=== PATIENT | female | born 1975 | race Caucasian/White ===

== ENCOUNTER 2017-01-04 13:11 | Emergency (ER) | payer OTHER, MEDICAID ==
[~2017-01-04] VITALS: Ht 160 cm; Wt 81.6 kg
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
[2017-01-04 14:44] VITALS: BP 156/96
== END 2017-01-04 14:49 | disposition home or self-care (01) ==
LOC: UTC 13:11
DX: S46.912A Strain of unspecified muscle, fascia and tendon at shoulder and upper arm level, left arm, initial encounter (principal); V48.0XXA Car driver injured in noncollision transport accident in nontraffic accident, initial encounter; Y92.488 Other paved roadways as the place of occurrence of the external cause; F17.210 Nicotine dependence, cigarettes, uncomplicated; I25.10 Atherosclerotic heart disease of native coronary artery without angina pectoris; F41.9 Anxiety disorder, unspecified; F32.9 Major depressive disorder, single episode, unspecified; Z79.899 Other long term (current) drug therapy

== ENCOUNTER → 2017-02-01 | Outpatient (CLI) | payer OTHER, MEDICAID ==
[~2017-02-01] MED LIST: IBUPROFEN800 MG PO; PRINIVIL10 MG PO; SEROQUEL400 MG PO; VISTARIL25 M1 PO; ZOLOFT100 MG PO
[2017-02-03 08:46] LABS: RA Latex Turbid. 21.2 IU/mL (0.0-13.9)
[2017-02-03 20:36] LABS: Antinuclear Antibodies, IFA Positive (.)
== END ==
LOC: LAB 15:27
PROVIDERS: Emergency Medicine
DX: M25.539 Pain in unspecified wrist (principal)

== ENCOUNTER → 2017-03-03 | Outpatient (CLI) | payer OTHER, MEDICAID ==
[2017-03-03 10:54] LABS: LYMPH # 2.9 K/mm3 (0.7-4.5); LYMPH % 29.3 % (10-50.0)
[2017-03-03 10:57] LABS: HEMOGLOBIN 14.3 g/dL (12.2-16.2)
[2017-03-03 11:53] LABS: BUN 12 mg/dL (7-18)
[2017-03-03 12:00] LABS: GFR (ESTIMATED) 79 ML/MIN (59-)
--- NOTE | 2017-03-04 08:35 | RADIOLOGY REPORT PS360 ---
CHEST(2 VIEWS-NOT PORTABLE) Ordering physician: William Angel MD Age: 41 years Female INDICATION: chest symptomsHTN, SMOKER occasional cough PROCEDURE: CHEST(2 VIEWS-NOT PORTABLE) FINDINGS: Previous chest film portable from 10/06/2015. No interval change Lungs well expanded and clear with nothing definitely acute. No pneumothorax. No pleural effusion. Heart normal size. Normal pulmonary vascularity. Hilar and mediastinal structures appear satisfactory. Small calcified hilar nodes reflecting old granulomatous disease Chest wall unremarkable. T-spine intact. IMPRESSION ----- Stable negative chest. Lungs clear. No active disease
== END ==
LOC: RT 10:09 → LAB 10:09
PROVIDERS: Emergency Medicine
DX: G56.01 Carpal tunnel syndrome, right upper limb (principal); Z01.812 Encounter for preprocedural laboratory examination

== ENCOUNTER 2017-03-28 08:58 | Emergency (ER) | payer MEDICAID ==
[~2017-03-28] VITALS: Ht 160 cm; Wt 79.4 kg
--- OUTSIDE RECORDS SUMMARY | 2017-03-28 09:39 | External Medical Summary Rpt | CCD ---
Author Author , GLORY HOLDER Address Unknown Phone [email or web address] Care Team Providers Care Driller Helper Name Role Phone BEALYSHAKE LASHAWN, DMITRIALYSHAJOSH Unavailable Unavailable LASHAWN JONA JIMMY, Unavailable Unavailable JONA JIMMY BEBE OLIVEIRA PA-C Unavailable Unavailable BEBE LOCKWOOD PA-C FABIÁN VIOLETTE, VIOLETTE Unavailable Unavailable VIOLETTE SHANNAN, VIOLETTE Unavailable Unavailable SHANNAN LEXII SERJIO, LEXII Unavailable Unavailable SERJIO [facility] Un[facility] Un[facility], [facility], Unavailable Unavailable [facility] Un[facility], [facility] Unavailable Un[facility] Unavailable Unavailable [facility], [facility] SCIFRES, SCIFRES Unavailable Unavailable SCIFRES, SCIFRES Unavailable Unavailable WELLS SEA, WELLS SEA Unavailable Unavailable Purpose Continuity of Care Document - 07-19-2013 through 2016 Problems Code Diagnosis DOS Provider Status 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 K70149 OTHER LONG 06-28-2016 [facility] CURRENT INC DRUG THERAPY H524 PRESBYOPIA 05-20-2016 [facility] N289 DISORDER OF 01-29-2016 [facility] K[facility]YS[facility] URETER GROUP UNSPECIFIED R1031 RIGHT LOWER 01-26-2016 [facility] PAIN OF [facility] Z5329 PROC & [place] 01-26-2016 [facility] OUT INC PATIENTS OTH REASON 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 11-25-2015 [facility] THYROID INC NODULE E663 OVERWEIGHT 11-25-2015 [facility] INC I10 ESSENTIAL 11-25-2015 [facility] HYPERTENSIO INC N R079 CHEST PAIN 10-06-2015 [facility] M542 CERVICALGIA 08-27-2015 [facility] K529 NONINFECTIV 02-19-2015 [facility] E PHYSICIANS GASTROENTER GROUP ITIS & COLITIS UNS V7231 ROUTINE 03-18-2014 [facility] AL EXAMINATION 2410 NONTOXIC 11-27-2013 [facility] 2458 OTHER AND 11-27-2013 [facility] CHRONIC THYROIDITIS 2409 GOITER, 11-05-2013 [facility] 35025 OTHER 07-19-2013 [facility] FATIGUE INC F41.0 PANIC DISORDER WITHOUT AGORAPHOBIA R07.89 OTHER CHEST PAIN Z86.59 PERSONAL HISTORY OF OTHER MENTAL AND BEHAVIORAL DISORDERS Medications Na ND Rx Da Fi Fi Am Da Di Ph RX Ph St me C No te ll ll ou ys ag ar # ys at rm s nt no ma ic us Or Da si cy ia de te s n re d SE 65 11 12 60 30 00 HO Ac RT 86 -1 -0 .0 00 ME ti RA 20 4- 8- 00 06 TO ve LI 01 20 20 09 WN NE 30 17 17 00 5 36 PH HC AR L MA 10 CY 0 MG OF TA CY BL NT ET HI AN A LI 68 11 12 30 30 00 HO Ac SI 00 -1 -0 .0 00 ME ti NO 10 4- 8- 00 06 TO ve RI 26 20 20 09 WN IL 80 17 17 00 8 37 PH 10 AR MA MG CY TA OF BL ET CY NT HI AN A QU 68 11 12 60 30 00 HO Ac ET 00 -1 -0 .0 00 ME ti IA 10 4- 8- 00 06 TO ve PI 18 20 20 09 WN NE 30 17 17 00 6 38 PH FU AR MA MA RA CY TE OF 30 0 CY MG NT HI TA AN B A TR 57 11 12 30 10 00 HO Ac AM 66 -0 -0 .0 00 ME ti AD 40 8- 1- 00 04 TO ve OL 37 20 20 02 WN 71 17 17 55 HC 8 38 PH L AR 50 MA CY MG OF TA BL CY ET NT HI AN A AC 00 10 11 42 21 00 HO Ac ET 09 -1 -1 .0 00 ME ti AM 30 8- 0- 00 04 TO ve IN 15 20 20 02 WN OP 01 17 17 51 HE 0 74 PH N- AR CO MA D CY #3 OF TA BL CY ET NT HI AN A RI 59 10 11 12 6 00 HO Ac ED 74 -1 -1 .0 00 ME ti NI 60 8- 0- 00 06 TO ve SO 17 20 20 09 WN NE 50 17 17 63 9 65 PH 20 AR MA MG CY TA OF BL ET CY NT HI AN A SE 65 10 11 60 30 00 HO Ac RT 86 -1 -0 .0 00 ME ti RA 20 1- 3- 00 06 TO ve LI 01 20 20 09 WN NE 30 17 17 00 5 36 PH HC AR L MA 10 CY 0 MG OF TA CY BL NT ET HI AN A QU 68 10 11 60 30 00 HO Ac ET 00 -1 -0 .0 00 ME ti IA 10 1- 3- 00 06 TO ve PI 18 20 20 09 WN NE 30 17 17 00 6 38 PH FU AR MA MA RA CY TE OF 30 0 CY MG NT HI TA AN B A LI 68 10 11 30 30 00 HO Ac SI 00 -1 -0 .0 00 ME ti NO 10 1- 3- 00 06 TO ve RI 26 20 20 09 WN IL 80 17 17 00 8 37 PH 10 AR MA MG CY TA OF BL ET CY NT HI AN A QU 68 09 10 60 30 00 HO Ac ET 00 -1 -1 .0 00 ME ti IA 10 4- 3- 00 06 TO ve PI 18 20 20 09 WN NE 30 17 17 00 6 38 PH FU AR MA MA RA CY TE OF 30 0 CY MG NT HI TA AN B A SE 65 09 10 60 30 00 HO Ac RT 86 -1 -1 .0 00 ME ti RA 20 4- 3- 00 06 TO ve LI 01 20 20 09 WN NE 30 17 17 00 5 36 PH HC AR L MA 10 CY 0 MG OF TA CY BL NT ET HI AN A LI 68 09 10 30 30 00 HO Ac SI 00 -1 -1 .0 00 ME ti NO 10 4- 3- 00 06 TO ve RI 26 20 20 09 WN IL 80 17 17 00 8 37 PH 10 AR MA MG CY TA OF BL ET CY NT HI AN A LI 68 08 09 30 30 00 HO Ac SI 00 -1 -0 .0 00 ME ti NO 10 4- 8- 00 06 TO ve RI 26 20 20 09 WN IL 80 17 17 00 8 37 PH 10 AR MA MG CY TA OF BL ET CY NT HI AN A SE 65 08 09 60 30 00 HO Ac RT 86 -1 -0 .0 00 ME ti RA 20 4- 8- 00 06 TO ve LI 01 20 20 09 WN NE 30 17 17 00 5 36 PH HC AR L MA 10 CY 0 MG OF TA CY BL NT ET HI AN A QU 68 08 09 60 30 00 HO Ac ET 00 -1 -0 .0 00 ME ti IA 10 4- 8- 00 06 TO ve PI 18 20 20 09 WN NE 30 17 17 00 6 38 PH FU AR MA MA RA CY TE OF 30 0 CY MG NT HI TA AN B A SE 65 07 08 60 30 00 HO Ac RT 86 -1 -1 .0 00 ME ti RA 20 4- 1- 00 06 TO ve LI 01 20 20 09 WN NE 30 17 17 00 5 36 PH HC AR L MA 10 CY 0 MG OF TA CY BL NT ET HI AN A LI 68 07 08 30 30 00 HO Ac SI 00 -1 -1 .0 00 ME ti NO 10 4- 1- 00 06 TO ve RI 26 20 20 09 WN IL 80 17 17 00 8 37 PH 10 AR MA MG CY TA OF BL ET CY NT HI AN A QU 68 07 08 60 30 00 HO Ac ET 00 -1 -1 .0 00 ME ti IA 10 4- 1- 00 06 TO ve PI 18 20 20 09 WN NE 30 17 17 00 6 38 PH FU AR MA MA RA CY TE OF 30 0 CY MG NT HI TA AN B A SE 65 06 07 60 30 00 HO Ac RT 86 -1 -1 .0 00 ME ti RA 20 6- 4- 00 06 TO ve LI 01 20 20 08 WN NE 30 17 17 90 5 12 PH HC AR L MA 10 CY 0 MG OF TA CY BL NT ET HI AN A QU 68 06 07 60 30 00 HO Ac ET 00 -1 -1 .0 00 ME ti IA 10 5- 4- 00 06 TO ve PI 18 20 20 08 WN NE 30 17 17 90 6 10 PH FU AR MA MA RA CY TE OF 30 0 CY MG NT HI TA AN B A LI 68 06 07 30 30 00 HO Ac SI 00 -1 -1 .0 00 ME ti NO 10 6- 4- 00 06 TO ve RI 26 20 20 08 WN IL 80 17 17 90 8 11 PH 10 AR MA MG CY TA OF BL ET CY NT HI AN A SE 65 05 06 60 30 00 HO Ac RT 86 -2 -1 .0 00 ME ti RA 20 4- 6- 00 06 TO ve LI 01 20 20 08 WN NE 30 17 17 32 5 12 PH HC AR L MA 10 CY 0 MG OF TA CY BL NT ET HI AN A LI 68 05 06 30 30 00 HO Ac SI 00 -2 -1 .0 00 ME ti NO 10 4- 6- 00 06 TO ve RI 26 20 20 08 WN IL 80 17 17 32 8 11 PH 10 AR MA MG CY TA OF BL ET CY NT HI AN A QU 68 05 06 60 30 00 HO Ac ET 00 -1 -1 .0 00 ME ti IA 10 5- 6- 00 06 TO ve PI 18 20 20 08 WN NE 30 17 17 32 6 10 PH FU AR WIL DE LA TORRE RA CY TE OF 30 0 CY MG NT HI TA AN B A QU 68 04 05 60 30 00 HO Ac ET 00 -1 -1 .0 00 ME ti IA 10 4- 2- 00 06 TO ve PI 18 20 20 08 WN NE 30 17 17 32 6 10 PH FU AR WIL DE LA TORRE RA CY TE OF 30 0 CY MG NT HI TA AN B A LI 68 04 05 30 30 00 HO Ac SI 00 -1 -1 .0 00 ME ti NO 10 4- 2- 00 06 TO ve RI 26 20 20 08 WN IL 80 17 17 32 8 11 PH 10 AR MA MG CY TA OF BL ET CY NT HI AN A SE 65 04 05 60 30 00 HO Ac RT 86 -1 -1 .0 00 ME ti RA 20 4- 2- 00 06 TO ve LI 01 20 20 08 WN NE 30 17 17 32 5 12 PH HC AR L MA 10 CY 0 MG OF TA CY BL NT ET HI AN A AL 59 04 05 7. 7 00 HO Ac RI 76 -1 -0 00 00 ME ti AZ 23 2- 5- 0 04 TO ve OL 71 20 20 02 WN AM 90 17 17 18 3 83 PH 0. AR 25 MA CY MG OF TA BL CY ET NT HI AN A AL 59 03 04 28 14 00 HO Ac RI 76 -2 -2 .0 00 ME ti AZ 23 8- 1- 00 04 TO ve OL 71 20 20 02 WN AM 90 17 17 18 3 82 PH 0. AR 25 MA CY MG OF TA BL CY ET NT HI AN A SE 65 03 04 60 30 00 HO Ac RT 86 -1 -0 .0 00 ME ti RA 20 4- 7- 00 06 TO ve LI 01 20 20 08 WN NE 30 17 17 32 5 12 PH HC AR L MA 10 CY 0 MG OF TA CY BL NT ET HI AN A AL 59 03 04 42 14 00 HO Ac RI 76 -1 -0 .0 00 ME ti AZ 23 4- 7- 00 04 TO ve OL 71 20 20 02 WN AM 90 17 17 18 3 81 PH 0. AR 25 MA CY MG OF TA BL CY ET NT HI AN A QU 68 03 04 60 30 00 HO Ac ET 00 -1 -0 .0 00 ME ti IA 10 4- 7- 00 06 TO ve PI 18 20 20 08 WN NE 30 17 17 32 6 10 PH FU AR MA MA RA CY TE OF 30 0 CY MG NT HI TA AN B A LI 00 03 04 30 30 00 HO Ac SI 18 -1 -0 .0 00 ME ti NO 50 4- 7- 00 06 TO ve RI 61 20 20 08 WN IL 01 17 17 32 0 11 PH 10 AR MA MG CY TA OF BL ET CY NT HI AN A LI 00 02 03 30 30 00 HO Ac SI 18 -1 -1 .0 00 ME ti NO 50 6- 7- 00 06 TO ve RI 61 20 20 07 WN IL 01 17 17 75 0 13 PH 10 AR MA MG CY TA OF BL ET CY NT HI AN A AL 59 02 03 90 30 00 HO Ac RI 76 -1 -1 .0 00 ME ti AZ 23 6- 7- 00 04 TO ve OL 72 20 20 02 WN AM 00 17 17 06 4 33 PH 0. AR 5 MA MG CY TA OF BL ET CY NT HI AN A SE 65 02 03 60 30 00 HO Ac RT 86 -1 -1 .0 00 ME ti RA 20 3- 0- 00 06 TO ve LI 01 20 20 07 WN NE 30 17 17 75 5 11 PH HC AR L MA 10 CY 0 MG OF TA CY BL NT ET HI AN A QU 68 02 03 60 30 00 HO Ac ET 00 -1 -1 .0 00 ME ti IA 10 3- 0- 00 06 TO ve PI 18 20 20 07 WN NE 30 17 17 75 6 10 PH FU AR MA MA RA CY TE OF 30 0 CY MG NT HI TA AN B A SE 65 01 02 60 30 00 HO Ac RT 86 -1 -1 .0 00 ME ti RA 20 3- 0- 00 06 TO ve LI 01 20 20 07 WN NE 30 17 17 75 5 11 PH HC AR L MA 10 CY 0 MG OF TA CY BL NT ET HI AN A AL 59 01 02 90 30 00 HO Ac RI 76 -1 -1 .0 00 ME ti AZ 23 8- 0- 00 04 TO ve OL 72 20 20 02 WN AM 00 17 17 06 4 33 PH 0. AR 5 MA MG CY TA OF BL ET CY NT HI AN A LI 00 01 02 30 30 00 HO Ac SI 18 -1 -1 .0 00 ME ti NO 50 8- 0- 00 06 TO ve RI 61 20 20 07 WN IL 01 17 17 75 0 13 PH 10 AR MA MG CY TA OF BL ET CY NT HI AN A QU 68 01 02 60 30 00 HO Ac ET 00 -1 -1 .0 00 ME ti IA 10 3- 0- 00 06 TO ve PI 18 20 20 07 WN NE 30 17 17 75 6 10 PH FU AR MA MA RA CY TE OF 30 0 CY MG NT HI TA AN B A AL 59 12 01 90 30 00 HO Ac RI 76 -2 -1 .0 00 ME ti AZ 23 1- 3- 00 04 TO ve OL 72 20 20 02 WN AM 00 16 17 06 4 33 PH 0. AR 5 MA MG CY TA OF BL ET CY NT HI AN A QU 60 12 01 60 30 00 HO Ac ET 50 -1 -1 .0 00 ME ti IA 53 6- 3- 00 06 TO ve PI 13 20 20 07 WN NE 70 16 17 75 6 10 PH FU AR MA MA RA CY TE OF 30 0 CY MG NT HI TA AN B A SE 65 12 01 60 30 00 HO Ac RT 86 -1 -1 .0 00 ME ti RA 20 6- 3- 00 06 TO ve LI 01 20 20 07 WN NE 30 16 17 75 5 11 PH HC AR L MA 10 CY 0 MG OF TA CY BL NT ET HI AN A LI 00 12 01 30 30 00 HO Ac SI 18 -1 -1 .0 00 ME ti NO 50 6- 3- 00 06 TO ve RI 61 20 20 07 WN IL 01 16 17 75 0 13 PH 10 AR MA MG CY TA OF BL ET CY NT HI AN A Results Labs Lab Lab Date Result Refere Interp Status Commen Order Detail nces retati t Range on Basic metabolic panel (03-03-2017 10:10) Serum 11-17-2 = 138 136-145 complet sodium 017 mmoL/L ed measure 10:10 ment Serum 11-17-2 = 4.0 3.5-5.1 complet potassi 017 mmoL/L ed um 10:10 measure ment Serum 11-17-2 = 80 74-106 complet or 017 mg/dL ed plasma 10:10 glucose measure ment (mas Comment: PLEASE NOTE 3+ LIPEMIA Estimat = 79 59- complet ed 017 ML/MIN ed glomeru 10:10 lar filtrat ion rate (GF Comment: REFERENCE RANGE: >60 ML/MIN/1.73 SQUARE METERS Comment: If this patient is -Moroc[place], then multiply the Comment: result by 1.210. Serum 03-03-2 = 0.8 0.55-1. complet or 017 mg/dL 02 ed plasma 10:10 creatin ine measure ment ( Carbon = 29 21.0-32 complet dioxide 017 mmoL/L .0 ed 10:10 measure ment Serum 03-03-2 = 9.6 8.5-10. complet or 017 mg/dL 1 ed plasma 10:10 calcium measure ment (mas Serum = 12 7-18 complet or 017 mg/dL ed plasma 10:10 urea nitroge n measure men Serum = 102 98-107 complet or 017 mmoL/L ed plasma 10:10 chlorid e measure ment (mo Serum test (03-03-2017 10:10) Serum = NEG complet pregnan 017 NEGATIV ed cy test 10:10 E CBC w auto diff (03-03-2017 10:10) Blood = 10.1 4.8-10. complet leukocy 017 K/MM3 8 ed kenji 10:10 count (number /volume ) Automat = 12.9 11.5-17 complet ed 017 % .5 ed erythro 10:10 cyte distrib ution width Red = 4.79 4.2-5.4 complet blood 017 M/mm3 ed cell 10:10 count Blood = 240 142-424 complet platele 017 K/mm3 ed t count 10:10 Automat = 8.6 7.4-10. complet ed 017 fl 4 ed blood 10:10 platele t mean volume niko Garrett % = 5.4 % 1.7-9.3 complet 017 ed 10:10 Absolut = 0.6 0.1-1.0 complet e 017 K/mm3 ed monocyt 10:10 e count Automat = 88.2 82.2-97 complet ed 017 fl .8 ed erythro 10:10 cyte mean corpusc ular v Automat = 33.8 31.8-35 complet ed 017 g/dl .4 ed erythro 10:10 cyte mean corpusc ular h Mean = 29.8 27-31.2 complet corpusc 017 pg ed ular 10:10 hemoglo bin (MCH) determ Lymphoc = 29.3 10-50.0 complet yte 017 % ed count, 10:10 blood, automat ed Absolut = 2.9 0.7-4.5 complet e 017 K/mm3 ed lymphoc 10:10 yte count Blood = 14.3 12.2-16 complet hemoglo 017 g/dL .2 ed bin 10:10 measure ment (mass/v olum Blood = 42.2 37.0-47 complet hematoc 017 % .0 ed rit 10:10 (volume fractio n) Granulo = 62.4 37.0-80 complet cyte 017 % .0 ed percent 10:10 age Blood = 6.3 1.8-7.8 complet granulo 017 K/mm3 ed cytes 10:10 automat ed count (numb Automat = 2.2 % 0.1-12. complet ed 017 0 ed blood 10:10 eosinop hils/10 0 leukocy t Automat = 0.2 0.0-0.4 complet ed 017 K/mm3 ed blood 10:10 eosinop hil count Baso % = 0.6 % 0.1-2.0 complet 017 ed 10:10 Automat = 0.1 0-0.2 complet ed 017 K/MM3 ed blood 10:10 basophi l count (count/ vo Serum or plasma rheumatoid factor measur (02-01-2017 11:50) Serum 2 = 21.2 0.0-13. complet or 017 IU/mL 9 ed plasma 11:50 rheumat oid factor measur Comment: Performed at: [facility] Comment: [id number], [place] [id number] Comment: Residential Fee Appraiser: Natanael Vanegas PhD, Phone: [phone] Antinuclear Antibodies, IFA (02-01-2017 11:50) Serum = . complet nuclear 017 Positiv ed 11:50 e antibod y titer by immunof l Comment: Negative <1:80 Comment: Borderline 1:80 Comment: Positive >1:80 Serum 1 : 80 . complet homogen 017 ed eous 11:50 pattern antinuc lear an Note: Comment . complet 017 ed 11:50 Comment: Comment: A positive ANIKA result may occur in healthy individuals (low Comment: titer) or be associated with a variety of diseases. See Comment: interpretation chart which is not all inclusive: Comment: Comment: Pattern Antigen Detected Suggested Disease Association Comment: -------- Comment: Homogeneous DNA(ds,ss), SLE - High titers Comment: Nucleosomes, Comment: Histones Drug-induced SLE Comment: -------- Comment: Speckled Sm, WHITE SUGAR SUPERVISOR, SCL-70, SLE,MCTD,PSS (diffuse form), Comment: SS-A/SS-B Sjogrens Comment: -------- Comment: Nucleolar SCL-70, PM-1/SCL High titers Scleroderma, Comment: PM/DM Comment: -------- Comment: Centromere Centromere PSS (limited form) w/Crest Comment: syndrome variable Comment: -------- Comment: Nuclear Dot Sp100,[id number] Primary Biliary Cirrhosis Comment: -------- Comment: Nuclear GP210, Primary Biliary Cirrhosis Comment: Membrane douglas A,B,C Comment: -------- Comment: Performed at: [facility] Comment: [address] [facility], [place], [place] [id number] Comment: Residential Fee Appraiser: Natanael Vanegas PhD, Phone: [phone] Erythrocyte sedimentation rate by jimmy (02-01-2017 11:50) Erythro 10-18-2 = 13 0-20 complet cyte 017 mm/hr ed sedimen 11:50 tation rate by jimmy Serum or plasma uric acid measurement ( (02-01-2017 11:50) Serum 10-18-2 = 6.4 2.6-7.2 complet or 017 mg/dL ed plasma 11:50 uric acid measure [facility] ( Procedures Procedure DOS Code Location Performer Comment COLLECTIO [address] [facility] N VENOUS 7 PHYSICIAN BLOOD S GROUP VENIPUNCT URE DRUG TEST 60987 [facility] PRSMV [facility] QUAL DIR INC INC OPTICAL OBS PER DAY OPHTH 18142 [facility] 7 XM&EVAL COMPRHNSV ESTAB PT 1/> DRUG TST G0477 [facility] PRESUMP;C 6 [facility] [place] [address] [facility] ABDOMEN & 6 PELVIS ASSOCIATE W/CONTRAS S OF NOT T MATERIAL HEMOGLOBI 74929 [facility] N 6 [facility] GLYCOSYLA INC INC BRO A1C BLOOD 72974 [facility] COUNT 6 [facility] COMPLETE INC INC AUTO&[place] [address] [facility] FREE 6 [facility] [place] [address] [facility] THYROID 6 [facility] STIMULATI INC INC NG HORMONE TSH MICROSOMA 27680 [facility] L 6 [facility] ANTIBODIE INC INC S EACH COMPREHEN 36949 [facility] SIVE 6 [facility] METABOLIC INC INC PANEL COLLECTIO 26587 [facility] N VENOUS 6 [facility] BLOOD INC INC VENIPUNCT URE RADIOLOGI 19187 [facility] C 6 MEDICAL LASHAWN EXAMINATI IMAGING ON CHEST ASS SINGLE VIEW FRONTAL THERAPEUT 40950 [facility] BEBE IC 6 PHYSICIAN STONE PROPHYLAC S GROUP PA-C FABIÁN TIC/DX INJECTION SUBQ/IM INJECTION J1040 [facility] BEBE 6 PHYSICIAN STONE METHYLPRE S GROUP PA-C FABIÁN DNISOLONE ACETATE 80 MG INJECTION J1885 [facility] BEBE 6 PHYSICIAN STONE KETOROLAC S GROUP PA-C FABIÁN TROMETHAM INE PER 15 MG CYTP C/V 49520 [facility] AUTO THIN 4 [facility] LYR PREPJ SCR MNL RESCR PHYS FINE 88214 [facility] NEEDLE 4 [facility] ASPIRATIO INC [place] [address] [facility] GUIDANCE 4 [facility] NEEDLE INC INC PLACEMENT IMG S&I CYTP EVAL 01410 [facility] FINE [address] [place] [address] NEEDLE ASPIRATE INTERP & RE[place] [address] [facility] SURG [address] [place] [address] PATHOLOGY GROSS&SHANNAN ROSCOPIC EXAM UNCLASSIF J3490 [facility] IED DRUGS 4 [facility] INC INC US SOFT 57831 [facility] TISSUE 4 [facility] HEAD & INC INC NECK REAL TIME IMGE DOCM IODINE A9516 [facility] I-123 4 [facility] SODIUM INC INC IODIDE DX PER 100 UCI TO 999 THYROID 22303 [facility] UPTAKE 4 [facility] W/BLOOD INC INC FLOW SNGLE/MUL T SAIDA AQUILES US SOFT 29057 [facility] JONA TISSUE 4 MEDICAL JIMMY HEAD & IMAGING NECK REAL ASS TIME IMGE DOCM BLOOD 66159 [facility] COUNT 4 [facility] COMPLETE INC INC AUTO&AUTO DIFRNTL WBC HEMOGLOBI 99184 [facility] N 4 [facility] GLYCOSYLA INC INC BRO A1C LIPID 50255 [facility] PANEL 4 [facility] [place] [address] [facility] THYROXINE [address] [facility] TOTAL INC INC COMPREHEN 01860 [facility] SIVE [address] [facility] [place] [address] [facility] THYROID [address] [facility] STIMULATI INC INC NG HORMONE TSH Encounters Encounter Start End Date Code Location Performer Type Date [facility] T [facility]UT[facility] 6 6 [facility] T OFFICE 70940 [facility] VIOLETTE HAZEL 6 6 PHYSICIAN SHANNAN T VISIT S GROUP 15 MINUTES EMERGENCY 46209 [facility] 6 6 EMERG[facility] T VISIT PHYSICIAN HIGH/URGE S NT [facility] 6 6 [facility] 6 6 [facility] T VISIT LIMITED/M INOR PROB [facility] 6 6 [facility] 30284 [facility] BEBE OUTPATIEN 6 6 PHYSICIAN STONE T VISIT S GROUP HUMBERTO LOCKWOOD 10 MINUTES OFFICE 43730 [facility] VIOLETTE OUTPATIEN 5 5 PHYSICIAN SHANNAN T VISIT S GROUP 10 MINUTES PERIODIC 07343 [facility] VIOLETTE PREVENTIV 4 4 PHYSICIAN SHANNAN E MED EST S GROUP PATIENT 18-39 YRS [facility] 4 [facility] 4 4 [facility]
--- OUTSIDE RECORDS SUMMARY | 2017-03-28 09:39 | External Medical Summary Rpt | CCD ---
Author Author , GLORY HOLDER Address Unknown Phone [email or web address] Care Team Providers Care Software Configuration Manager Name Role Phone BEALYSHAKE LASHAWN, DMITRIALYSHAJOSH Unavailable Unavailable LASHAWN JONA JIMMY, Unavailable Unavailable JONA JIMMY BEBE OLIVEIRA PA-C Unavailable Unavailable BEBE LOCKWOOD PA-C FABIÁN VIOLETTE, VIOLETTE Unavailable Unavailable VIOLETTE SHANNAN, VIOLETTE Unavailable Unavailable SHANNAN LEXII SERJIO, LEXII Unavailable Unavailable SERJIO [facility] Unavailable Un[facility] INC, [facility], Unavailable Unavailable [facility] Un[facility], [facility] Unavailable [facility] Unavailable Un[facility] Unavailable Unavailable OF [facility], [facility] SCIFRES, SCIFRES Unavailable Unavailable SCIFRES, SCIFRES Unavailable Unavailable [facility], [facility] Unavailable Unavailable Purpose Continuity of Care Document - 07-19-2013 through 2016 Problems Code Diagnosis DOS Provider Status G5603 CARPAL 02-01-2017 [facility]YS[facility]ANS SYNDROME GROUP BILATERAL UPPER LIMBS [id number] OTHER LONG 06-28-2016 [facility] CURRENT INC DRUG THERAPY H524 PRESBYOPIA 05-20-2016 [facility] N289 DISORDER OF 01-29-2016 [facility] KIDNEY AND PHYSICIANS URETER GROUP UNSPECIFIED R1031 RIGHT LOWER 01-26-2016 [facility] PAIN OF [facility] Z5329 PROC & [place] 01-26-2016 [facility]RIED [facility] OUT INC PATIENTS OTH REASON 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 11-25-2015 [facility] THYROID INC NODULE E663 OVERWEIGHT 11-25-2015 [facility] INC I10 ESSENTIAL 11-25-2015 [facility] HYPERTENSIO INC N R079 CHEST PAIN 10-06-2015 [facility] M542 CERVICALGIA 08-27-2015 [facility] K529 NONINFECTIV 02-19-2015 [facility] E PHYSICIANS GASTROENTER GROUP ITIS & COLITIS UNS V7231 ROUTINE 03-18-2014 [facility] AL EXAMINATION 2410 NONTOXIC 11-27-2013 [facility] 2458 OTHER AND 11-27-2013 [facility]NSPEC[facility] CHRONIC THYROIDITIS 2409 GOITER, 11-05-2013 [facility] 82948 OTHER 07-19-2013 [facility] [...] 10 4- 8- 00 06 TO ve LA 26 20 20 09 WN IL 80 [...] BL CY ET NT HI AN A LA 59 10 11 12 6 00 HO [...] 10 1- 3- 00 06 TO ve LA 26 20 20 09 WN IL 80 [...] 10 4- 3- 00 06 TO ve LA 26 20 20 09 WN IL 80 17 17 00 8 37 PH 10 AR MA MG CY TA OF BL ET CY NT HI AN A LI 68 08 09 30 30 00 HO Ac SI 00 -1 -0 .0 00 ME ti NO 10 4- 8- 00 06 TO ve LA 26 20 20 09 WN IL 80 [...] 10 4- 1- 00 06 TO ve LA 26 20 20 09 WN IL 80 [...] 10 6- 4- 00 06 TO ve LA 26 20 20 08 WN IL 80 [...] 10 4- 6- 00 06 TO ve LA 26 20 20 08 WN IL 80 [...] 10 4- 2- 00 06 TO ve LA 26 20 20 08 WN IL 80 [...] 04 05 7. 7 00 HO Ac LA 76 -1 -0 00 00 ME ti AZ 23 2- 5- 0 04 TO ve OL 71 20 20 02 WN AM 90 17 17 18 3 83 PH 0. AR 25 MA CY MG OF TA BL CY ET NT HI AN A AL 59 03 04 28 14 00 HO Ac LA 76 -2 -2 .0 00 ME ti [...] 03 04 42 14 00 HO Ac LA 76 -1 -0 .0 00 ME ti [...] 50 4- 7- 00 06 TO ve LA 61 20 20 08 WN IL 01 17 17 32 0 11 PH 10 AR MA MG CY TA OF BL ET CY NT HI AN A LI 00 02 03 30 30 00 HO Ac SI 18 -1 -1 .0 00 ME ti NO 50 6- 7- 00 06 TO ve LA 61 20 20 07 WN IL 01 17 17 75 0 13 PH 10 AR MA MG CY TA OF BL ET CY NT HI AN A AL 59 02 03 90 30 00 HO Ac LA 76 -1 -1 .0 00 ME ti [...] 01 02 90 30 00 HO Ac LA 76 -1 -1 .0 00 ME ti [...] 50 8- 0- 00 06 TO ve LA 61 20 20 07 WN IL 01 [...] 12 01 90 30 00 HO Ac LA 76 -2 -1 .0 00 ME ti [...] 50 6- 3- 00 06 TO ve LA 61 20 20 07 WN IL 01 [...] SQUARE METERS Comment: If this patient is -French, then multiply the Comment: result by 1.210. [...] blood 10:10 platele t mean volume niko [place] % = 5.4 % 1.7-9.3 complet 017 [...] rheumat oid factor measur Comment: Performed at: [facility] Comment: [address], [place] [id number] Comment: Chemistry Teacher: Natanael Vanegas PhD, Phone: [phone] Antinuclear Antibodies, IFA (02-01-2017 11:50) Serum = [...] Drug-induced SLE Comment: -------- Comment: Speckled Sm, CANAL LOCK TENDER CHIEF OPERATOR, SCL-70, SLE,MCTD,PSS (diffuse form), Comment: SS-A/SS-B Sjogrens Comment: -------- Comment: Nucleolar SCL-70, PM-1/SCL High titers Scleroderma, Comment: PM/DM Comment: -------- Comment: Centromere Centromere PSS (limited form) w/Crest Comment: syndrome variable Comment: -------- Comment: Nuclear Dot Sp100,[id number] Primary Biliary Cirrhosis Comment: -------- Comment: Nuclear GP210, Primary Biliary Cirrhosis Comment: Membrane douglas A,B,C Comment: -------- Comment: Performed at: [facility] Comment: [id number], [place], [place] [id number] Comment: Chemistry Teacher: Natanael Vanegas PhD, Phone: [phone] Erythrocyte sedimentation rate by jimmy (02-01-2017 11:50) Erythro 10-18-2 = 13 0-20 complet cyte 017 mm/hr ed sedimen 11:50 tation rate by jimmy Serum or plasma uric acid measurement ( (02-01-2017 11:50) Serum 10-18-2 = 6.4 2.6-7.2 complet or 017 mg/dL ed plasma 11:50 uric acid measure [facility] ( Procedures Procedure DOS Code Location Performer Comment COLLECTIO 69084 [facility] N VENOUS 7 PHYSICIAN BLOOD S GROUP VENIPUNCT URE DRUG TEST 41583 [facility] PRSMV 7 [facility] QUAL DIR INC INC OPTICAL OBS PER DAY OPHTH 57796 [facility] 7 XM&EVAL COMPRHNSV ESTAB PT 1/> DRUG TST G0477 [facility] PRESUMP;C 6 [facility] PBL [place] [address] [facility] ABDOMEN & 6 PELVIS ASSOCIATE W/CONTRAS S OF NOT T MATERIAL HEMOGLOBI 06478 [facility] N 6 [facility] GLYCOSYLA INC INC BRO A1C BLOOD 26001 [facility] COUNT 6 [facility] COMPLETE INC INC AUTO&[place] [address] [facility] FREE 6 [facility] [place] [address] [facility] THYROID 6 [facility] STIMULATI INC INC NG HORMONE TSH MICROSOMA 31630 [facility] L 6 [facility] ANTIBODIE INC INC S EACH COMPREHEN 58173 [facility] SIVE 6 [facility] METABOLIC INC INC PANEL COLLECTIO 29855 [facility] N VENOUS 6 [facility] BLOOD INC INC VENIPUNCT URE RADIOLOGI 56453 [facility] C 6 MEDICAL LASHAWN EXAMINATI IMAGING ON CHEST ASS SINGLE VIEW FRONTAL THERAPEUT 61032 [facility] BEBE IC 6 PHYSICIAN STONE PROPHYLAC S GROUP PA-C FABIÁN TIC/DX INJECTION SUBQ/IM INJECTION J1040 [facility] BEBE 6 PHYSICIAN STONE METHYLPRE S GROUP PA-C FABIÁN DNISOLONE ACETATE 80 MG INJECTION J1885 [facility] BEBE 6 PHYSICIAN STONE KETOROLAC S GROUP PA-C FABIÁN TROMETHAM INE PER 15 MG CYTP C/V 29543 [facility], AUTO THIN 4 [facility] LYR PREPJ SCR MNL RESCR PHYS FINE 46448 [facility] NEEDLE 4 [facility] ASPIRATIO INC [place] [address] [facility] GUIDANCE 4 [facility] NEEDLE INC INC PLACEMENT IMG S&I CYTP EVAL 76738 [facility] FINE [address] [place] [address] NEEDLE ASPIRATE INTERP & RE[place] [address] [facility], SURG [address] [place] [address] PATHOLOGY GROSS&SHANNAN ROSCOPIC EXAM UNCLASSIF J3490 [facility] IED DRUGS 4 [facility] INC INC US SOFT 59097 [facility] TISSUE 4 [facility] HEAD & INC INC NECK REAL TIME IMGE DOCM IODINE A9516 [facility] I-123 4 [facility] SODIUM INC INC IODIDE DX PER 100 UCI TO 999 THYROID 38340 [facility] UPTAKE 4 [facility] W/BLOOD INC INC FLOW SNGLE/MUL T SAIDA AQUILES US SOFT [address] [facility] JONA TISSUE 4 MEDICAL JIMMY HEAD & IMAGING NECK REAL ASS TIME IMGE DOCM BLOOD 44879 [facility] COUNT 4 [facility] COMPLETE INC INC AUTO&AUTO DIFRNTL WBC HEMOGLOBI 03069 [facility] N 4 [facility] GLYCOSYLA INC INC BRO A1C LIPID 40168 [facility] PANEL 4 [facility] [place] [address] [facility] THYROXINE 4 [facility] TOTAL INC INC COMPREHEN 75867 [facility] SIVE 4 [facility]OS[place] [address] [facility] THYROID 4 [facility] HOSP STIMULATI INC INC NG HORMONE TSH Encounters Encounter Start End Date Code Location Performer Type Date [facility]ICE [facility] T VISIT S GROUP 25 MINUTES [facility] - 7 7 [facility] 40769 [facility] VIOLETTE HAZEL 6 6 PHYSICIAN SHANNAN T VISIT S GROUP 15 MINUTES EMERGENCY 36173 [facility] 6 6 EMERGENCY [facility] T VISIT PHYSICIAN HIGH/URGE S NT [facility] M[facility] - 6 6 [facility] 6 6 [facility] T [facility]ISIT LIMITED/M INOR PROB [facility] - 6 6 [facility] OFF[facility] 23234 [facility] BEBE OUTPATIEN 6 6 PHYSICIAN STONE T VISIT S GROUP HUMBERTO LOCKWOOD 10 MINUTES OFFICE 06349 [facility] VIOLETTE OUTPATIEN 5 5 PHYSICIAN SHANNAN T VISIT S GROUP 10 MINUTES PERIODIC 50117 [facility] VIO[facility]E PREVENTIV 4 4 PHYSICIAN SHANNAN E MED EST S GROUP PATIENT 18-39 YRS [facility] M[facility] - 4 4 [facility] - 4 4 [facility] OUT[facility]IEN [facility]
--- OUTSIDE RECORDS SUMMARY | 2017-03-28 09:41 | External Medical Summary Rpt | CCD ---
Author Author , GLORY Organization GLORY Address Unknown Phone [email or web address] Providers Care Machine Sewer Name Role Phone BEALYSHAKE LASHAWN, ASHLIE Unavailable Unavailable LASHAWN JOAN JIMMY, Unavailable Unavailable JONA JIMMY BEBE OLIVEIRA PA-C Unavailable Unavailable BEBE LOCKWOOD PA-C FABIÁN VIOLETTE, VIOLETTE Unavailable Unavailable VIOLETTE SHANNAN, VIOLETTE Unavailable Unavailable SHANNAN LEXII SERJIO, LEXII Unavailable Unavailable SERJIO [facility] Unavailable Unavailable INC, [facility], Unavailable Unavailable [facility] Un[facility] Unavailable [facility], [facility] Unavailable [facility] Unavailable Un[facility] Unavailable Unavailable OF [facility], [facility] SCIFRES, SCIFRES Unavailable Unavailable SCIFRES, SCIFRES Unavailable Unavailable [facility], [facility] Unavailable Unavailable Purpose Continuity of Care Document - 07-19-2013 through 2016 Problems Code Diagnosis DOS Provider Status G5603 CARPAL 02-01-2017 [facility] TUN[facility]EL PHYSICIANS SYNDROME GROUP BILATERAL UPPER LIMBS K90124 OTHER LONG 06-28-2016 [facility] CURRENT INC DRUG THERAPY H524 PRESBYOPIA 05-20-2016 SC[facility] N289 DISORDER OF 01-29-2016 [facility] KIDNEY AND PHYSICIANS URETER GROUP UNSPECIFIED R1031 RIGHT LOWER 01-26-2016 [facility] PAIN OF [facility] Z5329 PROC & [place] 01-26-2016 [facility] NOT CARRIED [facility] OUT INC PATIENTS OTH REASON 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 11-25-2015 [facility] THYROID INC NODULE E663 OVERWEIGHT 11-25-2015 [facility] INC I10 ESSENTIAL 11-25-2015 [facility] HYPERTENSIO INC N R079 CHEST PAIN 10-06-2015 [facility] M542 CERVICALGIA 08-27-2015 [facility] K529 NONINFECTIV 02-19-2015 [facility] E PHYSICIANS GASTROENTER GROUP ITIS & COLITIS UNS V7231 ROUTINE 03-18-2014 [facility] AL EXAMINATION 2410 NONTOXIC 11-27-2013 [facility] 2458 OTHER AND 11-27-2013 [facility] CHRONIC THYROIDITIS 2409 GOITER, 11-05-2013 [facility] INC 93307 OTHER 07-19-2013 [facility] FATIGUE INC Medications Na ND Rx Da Fi Fi [...] 10 4- 8- 00 06 TO ve W[place] 26 20 20 09 WN IL 80 [...] BL CY ET NT HI AN A W[place] 59 10 11 12 6 00 HO [...] 10 1- 3- 00 06 TO ve WY 26 20 20 09 WN IL 80 [...] 10 4- 3- 00 06 TO ve WY 26 20 20 09 WN IL 80 17 17 00 8 37 PH 10 AR MA MG CY TA OF BL ET CY NT HI AN A LI 68 08 09 30 30 00 HO Ac SI 00 -1 -0 .0 00 ME ti NO 10 4- 8- 00 06 TO ve WY 26 20 20 09 WN IL 80 [...] 17 00 6 38 PH FU AR WIL DE LA TORRE [...] 10 4- 1- 00 06 TO ve WY 26 20 20 09 WN IL 80 [...] 17 00 6 38 PH FU AR WIL DE LA TORRE [...] NT ET HI AN A LI 68 06 07 30 30 00 HO Ac SI 00 -1 -1 .0 00 ME ti NO 10 6- 4- 00 06 TO ve WY 26 20 20 08 WN IL 80 17 17 90 8 11 PH 10 AR MA MG CY TA OF BL ET CY NT HI AN A QU 68 06 07 60 30 00 HO Ac ET 00 -1 -1 .0 00 ME ti IA 10 5- 4- 00 06 TO ve PI 18 20 20 08 WN NE 30 17 17 90 6 10 PH FU AR MA WIL RA CY TE OF 30 0 CY MG NT HI TA AN B A SE 65 05 06 60 30 [...] 10 4- 6- 00 06 TO ve WY 26 20 20 08 WN IL 80 [...] 10 4- 2- 00 06 TO ve WY 26 20 20 08 WN IL 80 [...] 04 05 7. 7 00 HO Ac WY 76 -1 -0 00 00 ME ti AZ 23 2- 5- 0 04 TO ve OL 71 20 20 02 WN AM 90 17 17 18 3 83 PH 0. AR 25 MA CY MG OF TA BL CY ET NT HI AN A AL 59 03 04 28 14 00 HO Ac WY 76 -2 -2 .0 00 ME ti [...] 50 4- 7- 00 06 TO ve WY 61 20 20 08 WN IL 01 17 17 32 0 11 PH 10 AR MA MG CY TA OF BL ET CY NT HI AN A SE 65 03 [...] 03 04 42 14 00 HO Ac WY 76 -1 -0 .0 00 ME ti AZ 23 4- 7- 00 04 TO ve OL 71 20 20 02 WN AM 90 17 17 18 3 81 PH 0. AR 25 MA CY MG OF TA BL CY ET NT HI AN A LI 00 02 03 30 30 00 HO Ac SI 18 -1 -1 .0 00 ME ti NO 50 6- 7- 00 06 TO ve WY 61 20 20 07 WN IL 01 17 17 75 0 13 PH 10 AR MA MG CY TA OF BL ET CY NT HI AN A AL 59 02 03 90 30 00 HO Ac WY 76 -1 -1 .0 00 ME ti [...] HI TA AN B A AL 59 01 02 90 30 00 HO Ac WY 76 -1 -1 .0 00 ME ti [...] 50 8- 0- 00 06 TO ve WY 61 20 20 07 WN IL 01 [...] CY BL NT ET HI AN A SE 65 12 01 60 30 [...] 50 6- 3- 00 06 TO ve WY 61 20 20 07 WN IL 01 [...] 12 01 90 30 00 HO Ac WY 76 -2 -1 .0 00 ME ti AZ 23 1- 3- 00 04 TO ve OL 72 20 20 02 WN AM 00 16 17 06 4 33 PH 0. AR 5 MA MG CY TA OF BL ET CY NT HI AN A Procedures Procedure DOS Code Location Performer Comment COLLECTIO 30736 [facility] N VENOUS 7 PHYSICIAN BLOOD S GROUP VENIPUNCT URE DRUG TEST 11385 [facility] PRSMV 7 [facility] QUAL DIR INC INC OPTICAL OBS PER DAY OPHTH 71946 SC[facility] SCIFRES MEDICAL 7 XM&EVAL COMPRHNSV ESTAB PT 1/> DRUG TST G0477 [facility] PRESUMP;C 6 [facility] PBL BEING [place] [address] RADIOLOG[facility] ABDOMEN & 6 PELVIS ASSOCIATE W/CONTRAS S OF [facility] T MATERIAL HEMOGLOBI 95742 [facility] N 6 [facility] GLYCOSY[place] [address] [facility] THYROID 6 [facility] STIMULATI INC INC NG HORMONE TSH COMPREHEN 02902 [facility] SIVE 6 [facility] METABOLIC INC INC PANEL BLOOD 60741 [facility] COUNT 6 [facility] COMPLETE INC INC AUTO&AUTO DIFRNTL WBC MICROSOMA 13219 [facility] L 6 [facility] [place] [address] [facility] FREE 6 [facility] THYROXINE INC INC COLLECTIO 19752 [facility] N VENOUS 6 [facility] BLOOD INC INC VENIPUNCT URE RADIOLOGI 68546 [facility] 6 MEDICAL LASHAWN EXAMINATI IMAGING ON CHEST ASS SINGLE VIEW FRONTAL INJECTION J1885 [facility] BEBE 6 PHYSICIAN STONE KETOROLAC S GROUP PA-C FABIÁN TROMETHAM INE PER 15 MG THERAPEUT 09783 [facility] BEBE IC 6 PHYSICIAN STONE PROPHYLAC S GROUP PA-C FABIÁN TIC/DX INJECTION SUBQ/IM INJECTION J1040 [facility] BEBE 6 PHYSICIAN ROXANNE METHYLPRE S GROUP PA-C FABIÁN DNISOLONE ACETATE 80 MG CYTP C/V 48528 [facility], AUTO THIN 4 [facility] [place] [address] [facility] GUIDANCE 4 [facility] NEEDLE INC INC PLACEMENT IMG S&I FINE 06568 [facility] NEEDLE 4 [facility] ASPIRATIO INC INC N WITH IMAGING GUIDANCE UNCLASSIF J3490 [facility] IED DRUGS 4 [facility] INC INC CYTP EVAL 63696 [facility] FINE 4 [facility] NEEDLE ASPIRATE INTERP & [place] [address] [facility], SURG 4 [facility] PATHOLOGY GROSS&SHANNAN ROSCOPIC EXAM US SOFT 48838 [facility] TISSUE 4 [facility] HEAD & INC INC NECK REAL TIME IMGE DOCM THYROID 64416 [facility] UPTAKE 4 [facility] W/BLOOD INC INC FLOW SNGLE/MUL T SAIDA AQUILES IODINE A9516 [facility] I-123 4 [facility] SODIUM INC INC IODIDE DX PER 100 UCI TO 999 US SOFT 04177 [place] JONA TISSUE 4 MEDICAL JIMMY HEAD & IMAGING NECK REAL ASS TIME IMGE DOCM HEMOGLOBI 84378 [facility] N 4 [facility] GLYCOSYLA INC INC BRO A1C BLOOD 59251 [facility] COUNT 4 [facility] COMPLETE INC INC AUTO&AUTO DIFRNTL WBC LIPID 77593 [facility] PANEL 4 [facility] INC INC COMPREHEN 42128 [facility] SIVE 4 [facility] [place] [address] [facility] THYROXINE 4 [facility] [place] [place] [address] [facility] THYROID 4 [facility] STIMULATI INC INC NG HORMONE TSH Encounters Encounter Start End Date Code Location Performer Type Date OFFICE 94956 [facility] VIOLETTE HAZEL 7 7 PHYSICIAN T VISIT S GROUP 25 MINUTES [facility]OSPITAL [facility] - 7 7 [facility] - 6 6 [facility] T OFFICE 99552 [facility] PHYSICIAN SHANNAN T VISIT S GROUP 15 MINUTES EMERGENCY 84537 [facility] 6 6 EMERGENC[facility] T VISIT PHYSICIAN HIGH/URGE S NT SEVERITY EMERGENCY 43970 [facility] 6 [address] [facility] T VISIT LIMITED/M INOR [facility] - 6 6 [facility] 6 6 [facility] T OFFICE 00811 [facility] BEBE OUTPATIEN 6 6 PHYSICIAN STONE T VISIT S GROUP HUMBERTO LOCKWOOD 10 MINUTES OFFICE 00151 [facility] VIO[facility]TTE OUTPATIEN 5 5 PHYSICIAN SHANNAN T VISIT S GROUP 10 MINUTES PERIODIC 08562 [facility] VIO[facility] PREVENTIV 4 4 PHYSICIAN SHANNAN E MED EST S GROUP PATIENT 18-39 YRS [facility] M[facility] - 4 4 [facility] - 4 4 [facility]
--- OUTSIDE RECORDS SUMMARY | 2017-03-28 09:41 | External Medical Summary Rpt | CCD ---
Author Author , GLORY Organization GLORY Address Unknown Phone [email or web address] Team Providers Care Powerhouse Helper Name Role Phone BEALYSHAKE LASHAWN, ASHLIE Unavailable Unavailable LASHAWN JONA JIMMY, Unavailable Unavailable JONA JIMMY BEBE OLIVEIRA PA-C Unavailable Unavailable BEBE LOCKWOOD PA-C FABIÁN VIOLETTE, VIOLETTE Unavailable Unavailable VIOLETTE SHANNAN, VIOLETTE Unavailable Unavailable SHANNAN LEXII SERJIO, LEXII Unavailable Unavailable SERJIO [facility] Unavailable Unavailable INC, [facility], Unavailable Unavailable [facility] Un[facility] Unavailable [facility] Unavailable Un[facility] Unavailable Unavailable [facility], [facility] SCIFRES, SCIFRES Unavailable Unavailable SCIFRES, SCIFRES Unavailable Unavailable [facility], [facility] Unavailable Unavailable Purpose Continuity of Care Document - 07-19-2013 through 2016 Problems Code Diagnosis DOS Provider Status G5603 CARPAL 02-01-2017 [facility] TUNNEL PHYSICIANS SYNDROME GROUP BILATERAL UPPER LIMBS [id number] OTHER LONG 06-28-2016 [facility] CURRENT INC DRUG THERAPY H524 PRESBYOPIA 05-20-2016 [facility] N289 DISORDER OF 01-29-2016 [facility] KIDNEY AND PHYSICIANS URETER GROUP UNSPECIFIED R1031 RIGHT LOWER 01-26-2016 [facility] PAIN OF [facility] Z5329 PROC & [place] 01-26-2016 [facility] OUT INC PATIENTS OTH REASON 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 11-25-2015 [facility] THYROID INC NODULE E663 OVERWEIGHT 11-25-2015 [facility] INC I10 ESSENTIAL 11-25-2015 [facility] HYPERTENSIO INC N R079 CHEST PAIN 10-06-2015 [facility] M542 CERVICALGIA 08-27-2015 [facility] K529 NONINFECTIV 02-19-2015 [facility] E PHYSICIANS GASTROENTER GROUP ITIS & COLITIS UNS V7231 ROUTINE 03-18-2014 [facility] AL EXAMINATION 2410 NONTOXIC 11-27-2013 [facility] 2458 OTHER AND 11-27-2013 [facility] UNSPEC[facility] CHRONIC THYROIDITIS 2409 GOITER, 11-05-2013 [facility] 35507 OTHER 07-19-2013 [facility] [...] 10 4- 8- 00 06 TO ve MD 26 20 20 09 WN IL 80 [...] BL CY ET NT HI AN A MD 59 10 11 12 6 00 HO [...] 10 1- 3- 00 06 TO ve MD 26 20 20 09 WN IL 80 [...] 10 4- 3- 00 06 TO ve MD 26 20 20 09 WN IL 80 17 17 00 8 37 PH 10 AR MA MG CY TA OF BL ET CY NT HI AN A LI 68 08 09 30 30 00 HO Ac SI 00 -1 -0 .0 00 ME ti NO 10 4- 8- 00 06 TO ve MD 26 20 20 09 WN IL 80 [...] 10 4- 1- 00 06 TO ve MD 26 20 20 09 WN IL 80 [...] 10 6- 4- 00 06 TO ve MD 26 20 20 08 WN IL 80 [...] 10 4- 6- 00 06 TO ve MD 26 20 20 08 WN IL 80 [...] 10 4- 2- 00 06 TO ve MD 26 20 20 08 WN IL 80 [...] 04 05 7. 7 00 HO Ac MD 76 -1 -0 00 00 ME ti AZ 23 2- 5- 0 04 TO ve OL 71 20 20 02 WN AM 90 17 17 18 3 83 PH 0. AR 25 MA CY MG OF TA BL CY ET NT HI AN A AL 59 03 04 28 14 00 HO Ac MD 76 -2 -2 .0 00 ME ti [...] 50 4- 7- 00 06 TO ve MD 61 20 20 08 WN IL 01 [...] 03 04 42 14 00 HO Ac MD 76 -1 -0 .0 00 ME ti [...] 50 6- 7- 00 06 TO ve MD 61 20 20 07 WN IL 01 17 17 75 0 13 PH 10 AR MA MG CY TA OF BL ET CY NT HI AN A AL 59 02 03 90 30 00 HO Ac MD 76 -1 -1 .0 00 ME ti [...] 01 02 90 30 00 HO Ac MD 76 -1 -1 .0 00 ME ti [...] 50 8- 0- 00 06 TO ve MD 61 20 20 07 WN IL 01 [...] 50 6- 3- 00 06 TO ve MD 61 20 20 07 WN IL 01 [...] 12 01 90 30 00 HO Ac MD 76 -2 -1 .0 00 ME ti AZ 23 1- 3- 00 04 TO ve OL 72 20 20 02 WN AM 00 16 17 06 4 33 PH 0. AR 5 MA MG CY TA OF BL ET CY NT HI AN A Procedures Procedure DOS Code Location Performer Comment COLLECTIO 06653 [facility] N VENOUS 7 PHYSICIAN BLOOD S GROUP VENIPUNCT URE DRUG TEST 71934 [facility] PRSMV 7 [facility] QUAL DIR INC INC OPTICAL OBS PER DAY OPHTH 86671 SC[facility] SCIFRES MEDICAL 7 XM&EVAL COMPRHNSV ESTAB PT 1/> DRUG TST G0477 [facility] PRESUMP;C 6 [facility] PBL [place]ING [place] [address] [facility] ABDOMEN & 6 PELVIS ASSOCIATE W/CONTRAS S OF [facility] T MATERIAL HEMOGLOBI 59976 [facility] N 6 [facility] GLYCOSY[place] [address] [facility] THYROID 6 [facility] STIMULATI INC INC NG HORMONE TSH COMPREHEN 78893 [facility] SIVE 6 [facility] METABOLIC INC INC PANEL BLOOD 72928 [facility] COUNT 6 [facility] COMPLETE INC INC AUTO&AUTO DIFRNTL WBC MICROSOMA 50270 [facility] L 6 [facility] [place] [address] [facility] FREE 6 [facility] THYROXINE INC INC COLLECTIO 14525 [facility] N VENOUS 6 [facility] BLOOD INC INC VENIPUNCT URE RADIOLOGI 55606 [facility] 6 MEDICAL LASHAWN EXAMINATI IMAGING ON CHEST ASS SINGLE VIEW FRONTAL INJECTION J1885 [facility] BEBE 6 PHYSICIAN STONE KETOROLAC S GROUP PA-C FABIÁN TROMETHAM INE PER 15 MG THERAPEUT 64704 [facility] BEBE IC 6 PHYSICIAN STONE PROPHYLAC S GROUP PA-C FABIÁN TIC/DX INJECTION SUBQ/IM INJECTION J1040 [facility] BEBE 6 PHYSICIAN ROXANNE METHYLPRE S GROUP PA-C FABIÁN DNISOLONE ACETATE 80 MG CYTP C/V 79324 [facility] AUTO THIN 4 [facility] [place] S[place] [address] [facility] GUIDANCE 4 [facility] NEEDLE INC INC PLACEMENT IMG S&I FINE 56817 [facility] NEEDLE 4 [facility] ASPIRATIO INC INC N WITH IMAGING GUIDANCE UNCLASSIF J3490 [facility] IED DRUGS 4 [facility] INC INC CYTP EVAL 93372 [facility] FINE 4 [facility] NEEDLE ASPIRATE INTERP & [place] [address] [facility], SURG 4 [facility] PATHOLOGY GROSS&SHANNAN ROSCOPIC EXAM US SOFT 05511 [facility] TISSUE 4 [facility] HEAD & INC INC NECK REAL TIME IMGE DOCM THYROID 49372 [facility] UPTAKE 4 [facility] W/BLOOD INC INC FLOW SNGLE/MUL T SAIDA AQUILES IODINE A9516 [facility] I-123 4 [facility] SODIUM INC INC IODIDE DX PER 100 UCI TO 999 US SOFT 48281 [place] JONA TISSUE 4 MEDICAL JIMMY HEAD & IMAGING NECK REAL ASS TIME IMGE DOCM HEMOGLOBI 43447 [facility] N 4 [facility] GLYCOSYLA INC INC BRO A1C BLOOD 13277 [facility] COUNT 4 [facility] COMPLETE INC INC AUTO&AUTO DIFRNTL WBC LIPID 30930 [facility] PANEL 4 [facility] INC INC COMPREHEN 89134 [facility] SIVE 4 [facility] [place] [address] [facility] THYROXINE 4 [facility] [place] [address] [facility] THYROID 4 [facility] STIMULATI INC INC NG HORMONE TSH Encounters Encounter Start End Date Code Location Performer Type Date OFFICE 66975 [facility] VIOLETTE HAZEL 7 7 PHYSICIAN T VISIT S GROUP 25 MINUTES HOSPITAL [facility] - 7 7 [facility] - 6 6 [facility] T OFFICE 10822 [facility] 6 PHYSICIAN SHANNAN T VISIT S GROUP 15 MINUTES EMERGENCY 19148 [place] LEXII 6 6 [facility]ER[facility] T VISIT PHYSICIAN HIGH/URGE S NT SEVERITY EMERGENCY 67016 [facility] 6 6 [facility] T VISIT LIMITED/M INOR [facility] - 6 6 [facility] 6 6 [facility] T OFFICE 19753 [facility] BEBE OUTPATIEN 6 6 PHYSICIAN STONE T VISIT S GROUP [place] [place] 10 MINUTES OFFICE 21587 [facility] VIOLETTE OUTPATIEN 5 5 PHYSICIAN SHANNAN T VISIT S GROUP 10 MINUTES PERIODIC 95613 [facility] VIOLETTE PREVENTIV 4 4 PHYSICIAN SHANNAN E MED EST S GROUP PATIENT 18-39 YRS [facility] - 4 4 [facility] 4 [facility] - 4 4 [facility]
--- OUTSIDE RECORDS SUMMARY | 2017-03-28 09:42 | External Medical Summary Rpt | CCD ---
Demographics Preferred Language Swedish Marital Status Unknown Adventist Affiliation Unknown Race Unknown Ethnic Group Unknown Author Author , GLORY HOLDER Address Unknown Phone Immunization No patient found.
--- OUTSIDE RECORDS SUMMARY | 2017-03-28 09:42 | External Medical Summary Rpt | CCD ---
Demographics Preferred Language Namibian Marital Status Unknown Baptism Affiliation Unknown Race Unknown Ethnic Group Unknown Author Author , GLORY HOLDER Address Unknown Phone Immunization No patient found.
--- NOTE | 2017-03-28 10:05 | RADIOLOGY REPORT PS360 ---
CT HEAD W/O CONTRAST HISTORY: WORST HEADACHE EVER ORDERING PHYSICIAN: Jimy Rios MD PATIENT AGE: 41 years COMPARISON: None TECHNIQUE: Axial images obtained without contrast. Brain and bone windows reviewed. FINDINGS: No midline shift, mass effect, intracranial hemorrhage, hydrocephalus, or extra-axial fluid collection is evident. The calvarium has an unremarkable appearance. No mastoid effusion. The visualized paranasal sinuses are unremarkable. IMPRESSION: Negative CT head without contrast. No acute finding.
--- NOTE | 2017-03-28 10:15 | Emergency Room Report ---
History of Present Illness Time Seen by [id number] Presenting Problem in Triage Pt arrived:Walked Presenting Problem:HEADACHE Onset of symptoms date/time:03/24/1712/02/799 or onset unknown for: Treatment Prior to Arrival: CARDIAC RN Provided by: Sepsis Risk Assessment: Temp: 98.3 B/P: 162/109 MAP: 126 Pulse: 88 Resp: 18 Recent fever? N Clinical Suspician of Infection? N Mental Status: 1 - Regular (Normal Baseline) Sepsis Risk:Low Sepsis Risk Have you (or family members/close friends) recently traveled outside the [place]? N If Yes, where/when: Have you had exposure to infectious disease within the past month? N TB? Other? Specify: Source patient, RN notes reviewed, RN/MD Exam Limitations no limitations Comment This is a 41-year-old lady arriving to the emergency room together with her complaining with worst headache ever, localizing the occiput. Patient denies any photophobia, nausea, vomiting. Her headache started approximately one week ago and she is stating that it is 10/10. Patient denies any previous similar episodes in the past. She is on Zestril 10 mg daily at home for her blood pressure. Her blood pressure has been normal, last time was 60 months ago. ALLERGIES Coded Allergies: No Known Allergies (01/26/16) Home Medications Active Scripts Ibuprofen (Ibuprofen 800MG) 800 MG PO QIDP PRN pain #30 TAB Prov: 01/04/17 Hydroxyzine Pamoate (Vistaril 25MG CAP) 25 MG PO Q6HP PRN anxiety #10 CAP Ref 1 Prov: 10/06/15 Reported Medications SERTRALINE HYDROCHLORIDE (Zoloft 100MG) 200 MG PO DAILY LISINOPRIL (Lisinopril) 10 MG PO DAILY Quetiapine Fumarate (Seroquel 400MG) 600 MG PO QHS History Medical History General CAD? Yes Angina: No NC: No Hypertension? No Hyperlipidemia? Yes CHF? No DVT? No PE? No COPD? No Asthma? No Anemia? No GERD? No Gastric ulcers? No GI Bleed? No Hernia? No Thyroid Problems? Yes Hypothyroidism? No CVA? No Seizures? No Diabetes? No Renal Insuffiency? No End Stage Renal Disease? No UTI? No Stones? No BPH? No GB Disease: No Nephritic Syndrome? No Asplenia? No Hepatitis? No Sickle Cell Disease? No Arthritis? No Migraines? No Cataracts? No Glaucoma? No MRSA? No HIV? No TB? No Anxiety? Yes Depression? Yes Cancer? No Site: N More? 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 Social History Smoking Hx Smoker: Current Every Day Smoker Tobacco: Yes Type Cigarettes Packs/day < 1 Pack Alcohol Alcohol: No Review of Systems All Other Systems Reviewed and Negative Psychiatric/Neurological headache Physical Exam Vital Signs Vital Signs Date Time Temp Pulse Resp B/P Pulse O2 O2 Flow FiO2 Ox Delivery Rate 03/28 1101 84 18 150/84 99 03/28 0935 18 03/28 0903 98.3 88 16 162/109 99 General Appearance normal appearance, WD/WN, no apparent distress Eye Exam - bilateral eye normal exam, bilateral eye PERRL, bilateral eye EOMI Neck normal inspection, non-tender, supple, full range of motion Respiratory Status Yes: trachea midline, chest symmetrical, non tender chest. No: respiratory distress. Lung Sounds bilateral: normal breath sounds, lungs clear. 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 No Comment 1000- patient reevaluated, she appears medically stable, improving, however her blood pressure is still elevated 180/106. Patient will have 1 dose of clonidine in the emergency room and then reevaluated. 11:00-blood pressure is now 150/86, and patient is headache free. Patient instructed to follow-up with PCP regarding her blood pressure, within the next 2 -3 days, by blood pressure cuff and keep a log with her blood pressure readings at home. If any recurrent headaches patient was given a list of neurologists to choose from in order to follow-up with neurologist of choice. Results/Orders Current Medication Orders Sig/Josee Start time Last Medication Dose Route Stop Time Status Admin Clonidine HCl 0.1 MG ONCE ONE 03/28 1030 DC 03/28 PO 03/28 1031 1023 Clonidine HCl 0 .STK-MED ONE 03/28 1021 DC .ROUTE Ketorolac 0 .STK-MED ONE 03/28 0932 DC Tromethamine .ROUTE Ondansetron HCl 0 .STK-MED ONE 03/28 0932 DC .ROUTE Ketorolac 60 MG ONCE ONE 03/28 0915 DC 03/28 Tromethamine IM 03/28 916 0935 Ondansetron HCl 4 MG ONCE ONE 03/28 0915 DC 03/28 IM 03/28 916 0936 Orders Procedure Date/time Status DIET-NOTHING BY MOUTH 03/[address] HEAD REQ 03/28 914 Active XRAY/CT/US XRAY/CT/US CT head CT interpretation by discussed w/radiologist CT Results normal/NAD, no fracture seen (no acute ICH) Departure Departure Time of Disposition 1013 Disposition DC Home or Self Care(routine) Clinical Impression Primary Impression: Headache Qualifiers: Headache type: tension-type Headache chronicity pattern: acute headache Intractability: not intractable Qualified Code: G44.209 - Tension-type headache, unspecified, not intractable Secondary Impressions: Hypertension Qualifiers: Hypertension type: essential hypertension Qualified Code: I10 - Essential (primary) hypertension Condition STABLE Referrals THOMAS MCKEON MD,William Schaefer (Family) VALERIY MUSA MARIA ROBERTSON, ELIZA SHOJAEI-MOGHADDAM MD,HOSSENI Patient Instructions Tension Headache, Treatments for High Blood Pressure: More Than Just Taking a Pill Additional Instructions Please follow up with one of the neurologists' listed below if any recurrent headaches, for additional workup. Discharge Counseling Counseled pt/family regarding diagnosis, test results, medications/RX, home care, follow up needs Comment Please follow up with one of the neurologists' listed below if any recurrent headaches, for additional workup. ED Critical Care Critical Care No at 1113
--- NOTE | 2017-03-28 10:15 | Emergency Room Report ---
History of Present Illness Time Seen by [id number] Presenting Problem in Triage Pt arrived:Walked Presenting Problem:HEADACHE Onset of symptoms date/time:03/24/1712/02/799 or onset unknown for: Treatment Prior to Arrival: STADIUM ATTENDANT Provided by: Sepsis Risk Assessment: Temp: 98.3 B/P: 162/109 MAP: 126 Pulse: 88 Resp: 18 Recent fever? N Clinical Suspician of Infection? N Mental Status: 1 - Regular (Normal Baseline) Sepsis Risk:Low Sepsis Risk Have you (or family members/close friends) recently traveled outside the [place]? N If Yes, where/when: Have you had exposure to infectious disease within the past month? N TB? Other? Specify: Source patient, RN notes reviewed, RN/MD Exam Limitations no limitations Comment This is a 41-year-old lady arriving to the emergency room together with her complaining with worst headache ever, localizing the occiput. Patient denies any photophobia, nausea, vomiting. Her headache started approximately one week ago and she is stating that it is 10/10. Patient denies any previous similar episodes in the past. She is on Zestril 10 mg daily at home for her blood pressure. Her blood pressure has been normal, last time was 60 months ago. ALLERGIES Coded Allergies: No Known Allergies (01/26/16) Home Medications Active Scripts Ibuprofen (Ibuprofen 800MG) 800 MG PO QIDP PRN pain #30 TAB Prov: 01/04/17 Hydroxyzine Pamoate (Vistaril 25MG CAP) 25 MG PO Q6HP PRN anxiety #10 CAP Ref 1 Prov: 10/06/15 Reported Medications SERTRALINE HYDROCHLORIDE (Zoloft 100MG) 200 MG PO DAILY LISINOPRIL (Lisinopril) 10 MG PO DAILY Quetiapine Fumarate (Seroquel 400MG) 600 MG PO QHS History Medical History General CAD? Yes Angina: No GA: No Hypertension? No Hyperlipidemia? Yes CHF? No DVT? No PE? No COPD? No Asthma? No Anemia? No GERD? No Gastric ulcers? No GI Bleed? No Hernia? No Thyroid Problems? Yes Hypothyroidism? No CVA? No Seizures? No Diabetes? No Renal Insuffiency? No End Stage Renal Disease? No UTI? No Stones? No BPH? No GB Disease: No Nephritic Syndrome? No Asplenia? No Hepatitis? No Sickle Cell Disease? No Arthritis? No Migraines? No Cataracts? No Glaucoma? No MRSA? No HIV? No TB? No Anxiety? Yes Depression? Yes Cancer? No Site: N More? 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 Social History Smoking Hx Smoker: Current Every Day Smoker Tobacco: Yes Type Cigarettes Packs/day < 1 Pack Alcohol Alcohol: No Review of Systems All Other Systems Reviewed and Negative Psychiatric/Neurological headache Physical Exam Vital Signs Vital Signs Date Time Temp Pulse Resp B/P Pulse O2 O2 Flow FiO2 Ox Delivery Rate 03/28 1101 84 18 150/84 99 03/28 0935 18 03/28 0903 98.3 88 16 162/109 99 General Appearance normal appearance, WD/WN, no apparent distress Eye Exam - bilateral eye normal exam, bilateral eye PERRL, bilateral eye EOMI Neck normal inspection, non-tender, supple, full range of motion Respiratory Status Yes: trachea midline, chest symmetrical, non tender chest. No: respiratory distress. Lung Sounds bilateral: normal breath sounds, lungs clear. 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 No Comment 1000- patient reevaluated, she appears medically stable, improving, however her blood pressure is still elevated 180/106. Patient will have 1 dose of clonidine in the emergency room and then reevaluated. 11:00-blood pressure is now 150/86, and patient is headache free. Patient instructed to follow-up with PCP regarding her blood pressure, within the next 2 -3 days, by blood pressure cuff and keep a log with her blood pressure readings at home. If any recurrent headaches patient was given a list of neurologists to choose from in order to follow-up with neurologist of choice. Results/Orders Current Medication Orders Sig/Josee Start time Last Medication Dose Route Stop Time Status Admin Clonidine HCl 0.1 MG ONCE ONE 03/28 1030 DC 03/28 PO 03/28 1031 1023 Clonidine HCl 0 .STK-MED ONE 03/28 1021 DC .ROUTE Ketorolac 0 .STK-MED ONE 03/28 0932 DC Tromethamine .ROUTE Ondansetron HCl 0 .STK-MED ONE 03/28 0932 DC .ROUTE Ketorolac 60 MG ONCE ONE 03/28 0915 DC 03/28 Tromethamine IM 03/28 916 0935 Ondansetron HCl 4 MG ONCE ONE 03/28 0915 DC 03/28 IM 03/28 916 0936 Orders Procedure Date/time Status DIET-NOTHING BY MOUTH 03/[address] HEAD REQ 03/28 914 Active XRAY/CT/US XRAY/CT/US CT head CT interpretation by discussed w/radiologist CT Results normal/NAD, no fracture seen (no acute ICH) Departure Departure Time of Disposition 1013 Disposition DC Home or Self Care(routine) Clinical Impression Primary Impression: Headache Qualifiers: Headache type: tension-type Headache chronicity pattern: acute headache Intractability: not intractable Qualified Code: G44.209 - Tension-type headache, unspecified, not intractable Secondary Impressions: Hypertension Qualifiers: Hypertension type: essential hypertension Qualified Code: I10 - Essential (primary) hypertension Condition STABLE Referrals THOMAS MCKEON MD,William Schaefer (Family) VALERIY MUSA MARIA ROBERTSON, ELIZA SHOJAEI-MOGHADDAM MD,HOSSEIN Patient Instructions Tension Headache, Treatments for High Blood Pressure: More Than Just Taking a Pill Additional Instructions Please follow up with one of the neurologists' listed below if any recurrent headaches, for additional workup. Discharge Counseling Counseled pt/family regarding diagnosis, test results, medications/RX, home care, follow up needs Comment Please follow up with one of the neurologists' listed below if any recurrent headaches, for additional workup. ED Critical Care Critical Care No at 1118
[2017-03-28 11:20] VITALS: BP 149/88
== END 2017-03-28 11:20 | disposition home or self-care (01) ==
LOC: ER 08:58
DX: G44.209 Tension-type headache, unspecified, not intractable (principal); I10 Essential (primary) hypertension
CPT/HCPCS: J2405